=== PATIENT | male | born 1965 ===

== ENCOUNTER 2017-07-13 12:32 | Emergency (ER) | payer MEDICAID, OTHER ==
[2017-07-13 13:00] VITALS: BP 128/85; PULSE 74; TEMP 97.7; O2SAT 98
[2017-07-13] MEDS ORDERED: Alum-Mag Hydrox-Simethicone Susp (30 mL) PO STA (14:13)
--- NOTE | 2017-07-13 14:15 | C.PDOC ---
History Of Present Illness 51 y/o male, w/PMHx of GERD and gastritis, presents to the ER complaining of sore throat, voice changes, and progressive odynophagia which has been present for the past 1 week. Patient states that food gets stuck in his lower esophagus when he is eating. Patient reports that his GERD symptoms are worse at 3 am. He notes that drinking cold liquids provides relief for odynophagia. He denies having fever, chills, and other complaints. Of note, he had an upper endoscopy 6 years ago. Time Seen by Provider: 07/13/17 13:54 Chief Complaint (Nursing): ENT Problem History Per: Patient History/Exam Limitations: None Onset/Duration Of Symptoms: Days Current Symptoms Are (Timing): Still Present Severity: Moderate Past Medical History Reviewed: Historical Data, Nursing Documentation, Vital Signs Vital Signs: Last Vital Signs Temp 97.7 F 07/13/17 12:57 Pulse 74 07/13/17 12:57 Resp 20 07/13/17 14:36 BP 128/85 07/13/17 12:57 Pulse Ox 98 07/13/17 14:46 - Medical History PMH: Gastritis, GERD, Hiatal Hernia Other Surgeries: Hx of surgeries Family History: States: No Known Family Hx - Social History Hx Alcohol Use: No Hx Substance Use: No - Immunization History Hx Tetanus Toxoid Vaccination: No Hx Influenza Vaccination: No Hx Pneumococcal Vaccination: No Review Of Systems Except As Marked, All Systems Reviewed And Found Negative. Constitutional: Negative for: Fever, Chills ENT: Positive for: Throat Pain, Other (odynophagia, voice changes) Cardiovascular: Negative for: Chest Pain Respiratory: Negative for: Cough, Shortness of Breath Physical Exam - Physical Exam Appears: Non-toxic, No Acute Distress, Other (mild hoarse voice) Skin: Normal Color, Warm Head: Atraumatic, Normacephalic Eye(s): bilateral: Normal Inspection Nose: Normal Oral Mucosa: Moist Throat: Erythema (mild erythema), No Exudate Lymphatic: Adenopathy (scant lymphadenopathy in anterior neck) Chest: Symmetrical Cardiovascular: Rhythm Regular Respiratory: Normal Breath Sounds Gastrointestinal/Abdominal: Normal Exam, Soft, No Tenderness Neurological/Psych: Oriented x3, Normal Speech ED Course And Treatment O2 Sat by Pulse Oximetry: 98 (RA) Pulse Ox Interpretation: Normal Progress Note: Patient given Pepcid PO and Maalox PO. Medical Decision Making Medical Decision Making: GERD, gastritis, hiatal hernia, PUD classic GERD without alarm s/s restart PPI, diet hygiene and outpatient upper endoscopy Disposition Doctor Will See Patient In The: Office Counseled Patient/Family Regarding: Studies Performed, Diagnosis - Disposition Referrals: [facility] [Outside] [facility] [Outside] Disposition: HOME/ ROUTINE Disposition Time: 14:15 Condition: GOOD Additional Instructions: Pepcid 20 mg TWICE a day: 9AM and 9PM Diet Hygiene Maalox 30 cc (one tablespoon) 4-5x/day for 1 week, then as needed Remember GERD symptoms are worse @ 3AM follow-up in our outpatient Clinic (free) to be referred for upper endoscopy in 2-3 months DDX: GERD, GAstritis, PUD, hiatal hernia Forms: [employer] (Spanish) - Clinical Impression Clinical Impression: Sore throat, Odynophagia - Scribe Statement The provider has reviewed the documentation as recorded by the David Suarez Provider Attestation: All medical record entries made by the David were at my direction and personally dictated by me. I have reviewed the chart and agree that the record accurately reflects my personal performance of the history, physical exam, medical decision making, and the department course for this patient. I have also personally directed, reviewed, and agree with the discharge instructions and disposition.
[2017-07-13] MEDS ORDERED: Alum-Mag Hydrox-Simethicone Susp (30 mL) ONE (14:36)
[2017-07-13 14:37] VITALS: RESP 20
== END 2017-07-13 14:36 | disposition home or self-care (01) ==
LOC: C.ER 12:32
DX: R13.10 Dysphagia, unspecified (principal); J02.9 Acute pharyngitis, unspecified

== ENCOUNTER 2018-04-21 08:09 | Emergency (ER) | payer MEDICAID, OTHER ==
[2018-04-21 08:37] VITALS: TEMP 97.4
--- NOTE | 2018-04-21 08:54 | C.PDOC ---
History Of Present Illness 52 y/o male comes in to ED with SOB and chest pain since this morning. Patient states he rode scooter to work earlier. Denies fever, chills, nausea, vomiting, dizziness, cough, or other complaints. Patient states pain is resolvin g. Time Seen by Provider: 04/21/18 08:26 Chief Complaint (Nursing): Chest Pain History Per: Patient History/Exam Limitations: no limitations Onset/Duration Of Symptoms: Hrs Current Symptoms Are (Timing): Still Present Past Medical History Reviewed: Historical Data, Nursing Documentation, Vital Signs Vital Signs: Last Vital Signs Temp 97.4 F L 04/21/18 08:32 Pulse 54 L 04/21/18 08:32 Resp 18 04/21/18 08:32 BP 115/82 04/21/18 08:32 Pulse Ox 94 L 04/21/18 08:32 - Medical History PMH: Gastritis, GERD, Hiatal Hernia Family History: States: No Known Family Hx - Social History Hx Alcohol Use: No Hx Substance Use: No - Immunization History Hx Tetanus Toxoid Vaccination: No Hx Influenza Vaccination: No Hx Pneumococcal Vaccination: No Review Of Systems Except As Marked, All Systems Reviewed And Found Negative. Constitutional: Negative for: Fever, Chills Cardiovascular: Positive for: Chest Pain Respiratory: Positive for: Shortness of Breath. Negative for: Cough Gastrointestinal: Negative for: Nausea, Vomiting, Abdominal Pain Skin: Negative for: Rash Neurological: Negative for: Dizziness Physical Exam - Physical Exam Appears: Non-toxic, No Acute Distress Skin: Warm, Dry Head: Atraumatic, Normacephalic Eye(s): bilateral: Normal Inspection Oral Mucosa: Moist Neck: Supple Cardiovascular: Rhythm Regular, No Murmur Respiratory: Normal Breath Sounds, No Rales, No Rhonchi, No Wheezing Gastrointestinal/Abdominal: Soft, No Tenderness Extremity: Bilateral: Atraumatic, Normal Color And Temperature, Normal ROM Neurological/Psych: Oriented x3, Normal Speech ED Course And Treatment - Laboratory Results Result Diagrams: 04/21/18 08:51 04/21/18 08:51 ECG: Interpreted By Me, Viewed By Me ECG Rhythm: Sinus Bradycardia Rate From EC O2 Sat by Pulse Oximetry: 94 (RA) Pulse Ox Interpretation: Abnormal - Other Rad CXR X-Ray: Read By Radiologist Interpretation: FINDINGS: LUNGS: Clear. PLEURA: No pneumothorax or pleural fluid seen. CARDIOVASCULAR: No aortic atherosclerotic calcification present. Normal. OSSEOUS STRUCTURES: No significant abnormalities. VISUALIZED UPPER ABDOMEN: Normal. OTHER FINDINGS: None. IMPRESSION: No active disease. Against Medical Advice - AMA Patient Left Against Medical Advice: The patient declines admission to the hospital and wishes to leave the Emergency Department. This action is against my medical advice. This decision was made with informed refusal. The patient was told that admission to the hospital is necessary. Explanation of the reasons why were discussed. The risks of leaving were explained to the patient and include, but are not limited to, worsening of known or currently unknown conditions, permanent disab ility and from undiagnosed or untreated conditions. The patient has the capacity to make this informed decision and understands my explanation of the current medical problem and risks of leaving. The patient voluntarily accepts these risks and signed an AMA form documenting our conversation. The patient was given the opportunity to ask questions and reconsider. The patient was encouraged to return to the Emergency Department at any time for further care. Medical Decision Making Medical Decision Making: cp ro acs pe, pneumo, Plan: --EKG --Labs --Chest XR --UA labs neg. dimer neg. 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 pt states he wishes to go home and refuses admission or er obs for repat trop, further imaging, possible stress test, admission. Disposition - Disposition Referrals: Ad Vazquez MD [Staff Provider] - Disposition: HOME/ ROUTINE Disposition Time: 10:00 Condition: UNKNOWN Additional Instructions: return to er with worsening. Instructions: Chest Pain, Dizziness, Nonvertigo, (DC), Leaving Against Medical Advice Forms: [employer] (Martiniquais) - Clinical Impression Clinical Impression: Chest pain, Left against medical advice - Scribe Statement The provider has reviewed the documentation as recorded by the David Peña Provider Attestation: All medical record entries made by the Corwinibe were at my direction and personally dictated by me. I have reviewed the chart and agree that the record accurately reflects my personal performance of the history, physical exam, medical decision making, and the department course for this patient. I have also personally directed, reviewed, and agree with the discharge instructions and disposition.
[2018-04-21 08:58] LABS: BASO % 0.9 % (0.0-2.0); EOS # 0.2 K/uL (0.0-0.7); HEMOGLOBIN 14.3 g/dL (12.0-18.0); LYMPH # 1.3 K/uL (1.0-4.3); MEAN CELL VOLUME 88.9 fL (80.0-94.0); MEAN CORPUSCULAR HEMOGLOBIN 29.5 pg (27.0-31.0); MEAN CORPUSCULAR HGB CONC 33.2 g/dL (33.0-37.0); MEAN PLATELET VOLUME 10.8 fL (7.2-11.7); MONO # 0.3 K/uL (0.0-0.8); NEUT # 3.1 K/uL (1.8-7.0); NEUT % 62.1 % (50.0-75.0); NRBC % 0.1 % (0.0-2.0); RBC 4.86 Mil/uL (4.40-5.90); RED CELL DISTRIBUTION WIDTH 13.1 % (11.5-14.5); WHITE BLOOD COUNT 4.9 K/uL (4.8-10.8)
[2018-04-21 09:09] LABS: INR 1.1; PARTIAL THROMBOPLASTIN TIME 29 SECONDS (21-34); PROTHROMBIN TIME 12.5 SECONDS (9.7-12.2)
[2018-04-21 09:23] LABS: ALB/GLOB RATIO 1.6 (1.0-2.1); ALBUMIN 4.1 g/dL (3.5-5.0); ALT/SGPT 41 U/L (21-72); AST/SGOT 27 U/L (17-59); B-TYPE NATRIURETIC PEPTIDE 40.8 pg/mL (0-900); BLOOD UREA NITROGEN 19 mg/dL (9-20); CALCIUM 8.5 mg/dl (8.6-10.4); GFR NON-AFRICAN AMERICAN > 60
[2018-04-21 09:44] LABS: D DIMER < 200 ng/mlDDU (0-243)
--- NOTE | 2018-04-21 09:57 | RAD ---
Date of service: 04/21/2018 PROCEDURE: CHEST RADIOGRAPH, 1 VIEW HISTORY: chest pain COMPARISON: None available. FINDINGS: LUNGS: Clear. PLEURA: No pneumothorax or pleural fluid seen. CARDIOVASCULAR: No aortic atherosclerotic calcification present. Normal. OSSEOUS STRUCTURES: No significant abnormalities. VISUALIZED UPPER ABDOMEN: Normal. OTHER FINDINGS: None. IMPRESSION: No active disease.
[2018-04-21 10:10] VITALS: BP 104/73; PULSE 83; RESP 16
[2018-04-21 10:19] VITALS: O2SAT 94
--- NOTE | 2018-04-22 19:18 | CARD ---
APPROVED REPORT Date of service: 04/21/2018 EKG Measurement Heart [id number] <Conclusion> Sinus bradycardia Otherwise normal ECG
== END 2018-04-21 10:20 | disposition home or self-care (01) ==
LOC: C.ER 08:09
DX: R07.9 Chest pain, unspecified (principal)